=== PATIENT | male | born 1985 | race African-American/Black ===

== ENCOUNTER 2016-07-30 20:52 | Emergency (ER) | payer MEDICAID ==
[~2016-07-30] VITALS: Ht 165.1 cm; Wt 70.0 kg
[2016-07-30 20:53] VITALS: BP 144/79; PULSE 86; RESP 16; TEMP 98; O2SAT 98
[2016-07-30] MEDS ORDERED: CEPH-460 PO (22:00)
[2016-07-30] MEDS ORDERED: BACT800T5 PO (22:00)
[2016-07-30] MEDS ORDERED: SULFAMETHOXAZOLE-TRIMETHOPRIM DS 800-160 MG TAB PO ONE (22:00)
[2016-07-30] MEDS ORDERED: CEPHALEXIN MONOHYDRATE 500 MG CAP PO ONE (22:00)
--- NOTE | 2016-07-30 22:06 | PD ---
HPI Chief Complaint: Lump, Cyst, Hernia Time Seen by Provider: 21:55 Travel History International Travel<30 days: No Contact w/Intl Traveler<30days: No Traveled to known affect area: No History of Present Illness HPI This is a 30-year-old male who denies any significant past medical history. He presents for evaluation of a right groin area of tenderness. Symptoms started 4 days ago. Symptoms have persisted which prompted evaluation. He describes it as an aching pain which is reproduced with palpation of the right inguinal region. He does note that he shaves the pubic region on a regular basis. Denies any testicular or scrotal pain, nausea or vomiting, abdominal pain, fevers or chills, drainage, urethral discharge, dysuria. He has no other complaints at this time. PFSH Past Medical History Diminished Hearing: No Social History Alcohol Use: Yes (2X WK) Tobacco Use: Yes (2X WK WHEN DRINKING) Substance Use: No Allergies-Medications (Allergen,Severity, Reaction): Coded Allergies: Lortab (Verified Allergy, Intermediate, Rash, 07/30/16) Reported Meds & Prescriptions Reported Meds & Active Scripts Active Keflex (Cephalexin) 500 Mg Cap 500 Mg PO Q6H 10 Days Bactrim DS (Sulfamethoxazole-Trimethoprim) 800-160 Mg Tab 1 Tab PO BID Review of Systems Except as stated in HPI: all other systems reviewed are Neg Physical Exam Narrative GENERAL: Well-developed well-nourished male in no acute distress SKIN: Warm and dry. Examination of the inguinal region reveals a 2 cm area of skin induration and erythema in the right groin. There is a central area of papular excoriation consistent with folliculitis. There is no fluctuance or drainage. There is no palpable lymphadenopathy. : Skin as noted above. There is no tenderness to palpation to the scrotum or the testicles. There is no palpable inguinal hernia. CARDIOVASCULAR: Regular rate and rhythm. No murmur appreciated. RESPIRATORY: No accessory muscle use. Clear to auscultation. Breath sounds equal bilaterally. GASTROINTESTINAL: Abdomen soft, non-tender, nondistended. Data Data Last Documented VS Vital Signs Date Time Temp Pulse Resp B/P Pulse Ox O2 Delivery O2 Flow Rate FiO2 07/30/16 20:53 98.0 86 16 144/79 98 Room Air Orders Sulfamet-Trimeth Ds 800-160 Mg (Bactrim (07/30/16 22:00) Cephalexin (Keflex) (07/30/16 22:00) [facility] Medical Decision Making Medical Screen Exam Complete: Yes Emergency Medical Condition: Yes Medical Record Reviewed: Yes Differential Diagnosis Cellulitis, abscess, carbuncle, lymphadenitis, inguinal hernia Narrative Course 30-year-old male presents with 4 days of skin irritation and tenderness in the right inguinal region. Examination reveals a 2 cm area of induration, erythema , central folliculitis and he appears to have cellulitis without any fluctuance or abscess formation. There is no palpable inguinal hernia or lymphadenitis. Plan is to treat the patient with oral antibiotics. Discussed signs and symptoms that would warrant return to the emergency room and he verbalizes understanding. He is stable for discharge. Diagnosis Primary Impression: Cellulitis of right groin Additional Impression: Folliculitis Additional Instructions: Take the antibiotics as prescribed. Warm compresses several times a day 10-15 minutes at a time. Return for evidence of worsening infection such as increasing redness, increasing swelling, fevers. Med/Other Pt SpecificInfo: Prescription(s) given Scripts Cephalexin (Keflex)500 Mg [id number] Mg PO Q6H 10 Days Ref 0 Prov:Luis Fung MD 07/30/16 Sulfamethoxazole-Trimethoprim (Bactrim DS)800-160 Mg Tab1 Tab PO BID #20 TAB Ref 0 Prov:Luis Fung MD 07/30/16 Disposition: 01 DISCHARGE HOME Condition: Stable Beni Day Jul 30, 2016 22:06
== END 2016-07-30 22:34 | disposition home or self-care (01) ==
LOC: NEPB 20:52
DX: L03.314 Cellulitis of groin (principal); L73.9 Follicular disorder, unspecified; Z72.0 Tobacco use
CPT/HCPCS: 99283

== ENCOUNTER 2016-11-10 08:40 | Emergency (ER) | payer MEDICAID ==
[~2016-11-10] VITALS: Ht 172.7 cm; Wt 74.0 kg
[~2016-11-10 08:40] MED LIST: BACT800T5 PO; CEPH-460 PO
[2016-11-10 08:41] VITALS: BP 135/87; PULSE 16; PULSE 86; RESP 15; TEMP 98.2; O2SAT 98
--- NOTE | 2016-11-10 09:20 | PD ---
HPI . possible STD Chief Complaint: Complaint Time Seen by Provider: 09:20 Travel History International Travel<30 days: No Contact w/Intl Traveler<30days: No Traveled to known affect area: No History of Present Illness HPI 31-year-old male with no past medical history here with complaints of possibly having STD. Patient says that he recently had unprotected sex and is now having dysuria for the past 3-4 days. He denies any penile discharge, but says the burning is very significant. He has no other complaints. He denies any fever or chills. He wants to have STD testing and would like to go ahead and opt for treatment prophylactically. PFSH Past Medical History Diminished Hearing: No Social History Alcohol Use: Yes (2X WK) Tobacco Use: Yes (2X WK WHEN DRINKING) Substance Use: No Allergies-Medications (Allergen,Severity, Reaction): Coded Allergies: No Known Allergies (Unverified , 11/10/16) Reported Meds & Prescriptions Reported Meds & Active Scripts Active Keflex (Cephalexin) 500 Mg Cap 500 Mg PO Q6H 10 Days Bactrim DS (Sulfamethoxazole-Trimethoprim) 800-160 Mg Tab 1 Tab PO BID Review of Systems General / Constitutional: No: Fever Eyes: No: Visual changes HENT: No: Headaches Cardiovascular: No: Chest Pain or Discomfort Respiratory: No: Shortness of Breath Gastrointestinal: No: Abdominal Pain Genitourinary: Positive: Dysuria Musculoskeletal: No: Pain Skin: No Rash Neurologic: No: Weakness Psychiatric: No: Depression Endocrine: No: Polydipsia Hematologic/Lymphatic: No: Easy Bruising Physical Exam Narrative GENERAL: AAO x 3, no acute distress, Well-nourished, well-developed patient. SKIN: Warm and dry. No visible rashes or bruising. HEAD: Normocephalic and atraumatic. EYES: No scleral icterus. No injection or drainage. ENT: No nasal drainage noted. Mucous membranes pink. Airway patent. NECK: Supple, trachea midline. No JVD. CARDIOVASCULAR: Regular rate and rhythm without murmurs, gallops, or rubs. RESPIRATORY: Breath sounds equal bilaterally. No accessory muscle use. No rhonchi or rales. GASTROINTESTINAL: Abdomen soft, non-tender, nondistended. GENITAL: Declined genital examination EXTREMITIES: No cyanosis or edema. BACK: Nontender without obvious deformity. No CVA tenderness. PSYCH: AAO x 3, normal affect. Data Data Last Documented VS Vital Signs Date Time Temp Pulse Resp B/P Pulse Ox O2 Delivery O2 Flow Rate FiO2 11/10/16 08:41 98.2 86 15 135/87 98 Orders Urinalysis - C+S If Indicated (11/10/16 09:20) Gc And Chlamydia Pcr (11/10/16 09:20) Azithromycin (Zithromax) (11/10/16 09:30) Ceftriaxone Inj (Rocephin Inj) (11/10/16 09:30) Sodium Chloride 0.9% Flush (Ns Flush) (11/10/16 09:30) Lidocaine 1% Inj (50 Ml) (Xylocaine 1% I (11/10/16 09:30) Labs Laboratory Tests Test 11/10/16 09:42 Urine Color YELLOW Urine Turbidity CLEAR Urine pH 6.5 Urine Specific [place] 1.017 Urine Protein NEG mg/dL Urine Glucose (UA) NEG mg/dL Urine Ketones NEG mg/dL Urine Occult Blood NEG Urine Nitrite NEG Urine Bilirubin NEG Urine Urobilinogen LESS THAN 2.0 MG/DL Urine Leukocyte Esterase NEG Urine RBC LESS THAN 1 /hpf Urine WBC LESS THAN 1 /hpf Microscopic Urinalysis Comment CULT NOT INDICATED MDM Medical Decision Making Medical Screen Exam Complete: Yes Emergency Medical Condition: Yes Medical Record Reviewed: Yes Differential Diagnosis Urethritis, UTI, less likely BPH Narrative Course 31-year-old male with no past medical history here with complaints of possibly having STD. Patient says that he recently had unprotected sex and is now having dysuria for the past 3-4 days. He denies any penile discharge, but says the burning is very significant. He has no other complaints. He denies any fever or chills. He wants to have STD testing and would like to go ahead and opt for treatment prophylactically. Patient seen and examined. He has no abn findings on examination. He declines any examination of his genitals. I recommend urine sample and GC testing. I've advised him that we can go ahead and prophylactically treat. He has accepted that plan and recommendations. Rocephin and Azithromycin in the ED. I advised him to go to the [facility] for further testing including syphilis, herpes and HIV. Patient verbalized understanding of instructions, questions were answered, and thanked me for their care. I advised them if their condition worsens, please return to the nearest emergency room for further care. Diagnosis Primary Impression: Dysuria Patient Instructions: General Instructions Additional Instructions: Please go to [facility] for further testing. Disposition: 01 DISCHARGE HOME Condition: Stable Torrie Fitzpatrick Nov 10, 2016 09:20
[2016-11-10] MEDS ORDERED: LIDOCAINE HCL 1% 50 ML VIAL XX ONE (09:30)
[2016-11-10] MEDS ORDERED: AZITHROMYCIN 250 MG TAB PO ONE (09:30)
[2016-11-10] MEDS ORDERED: SODIUM CHLORIDE 0.9% FLUSH 10 ML FLUSH IVF PRN (09:30)
[2016-11-10] MEDS ORDERED: cefTRIAXone 250 MG VIAL IM ONE (09:30)
[2016-11-10 10:12] LABS: BLOOD, URINE NEG (NEG); GLUCOSE,URINE NEG (NEG); KETONE, URINE NEG (NEG); NITRITE,URINE NEG (NEG); PH, URINE 6.5 (5.0-8.5); URINE COLOR YELLOW (YELLW/STRAW)
[2016-11-10 10:21] LABS: COMMENT (UR) CULT NOT INDICATED; CULTURE IF INDICATED CULT NOT INDICATED
[2016-11-10 12:47] LABS: CHLAMYDIA PCR NOT DETECTED (NOT DETECT); NEISSERIA PCR NOT DETECTED (NOT DETECT)
== END 2016-11-10 10:34 | disposition home or self-care (01) ==
LOC: NEPK 08:40
DX: R30.0 Dysuria (principal)
CPT/HCPCS: 81001; 87491; 87591; 96372; 99283; J0696

== ENCOUNTER 2017-02-01 15:22 | Emergency (ER) | payer MEDICAID ==
[~2017-02-01] VITALS: Ht 167.6 cm; Wt 75.0 kg
[2017-02-01 15:24] VITALS: BP 140/70; PULSE 64; RESP 20; TEMP 98.3; O2SAT 99
--- NOTE | 2017-02-01 16:34 | RADRPT ---
EXAM DATE/TIME: 02/01/2017 16:23 [place] COMPARISON: No previous studies available for comparison. INDICATIONS : Chest pain on left side and shortness of breath. MEDICAL HISTORY : None. SURGICAL HISTORY : None. ENCOUNTER: Initial ACUITY: 1 day PAIN SCORE: 8/10 LOCATION: Bilateral chest FINDINGS: The lungs are clear without infiltrate, nodule, or mass. There is no appreciable pleural effusion fo r technique. Heart and mediastinum are unremarkable. CONCLUSION: No acute cardiopulmonary disease. Sydney Harding MD on February 01, 2017 at 16:31 Board Certified Radiologist. This report was verified electronically.
[2017-02-01 17:08] VITALS: BP 119/66; PULSE 75; RESP 18; O2SAT 99
[2017-02-01] MEDS ORDERED: MORPHINE SULFATE 4 MG/ML INJ IV PUSH ONE (17:30)
[2017-02-01] MEDS ORDERED: ASPIRIN 325 MG TAB PO ONE (17:30)
[2017-02-01] MEDS ORDERED: SODIUM CHLORIDE 0.9% FLUSH 10 ML FLUSH IVF PRN (17:30)
[2017-02-01] MEDS: MORPHINE SULFATE 8 MG/ML INJ IV PUSH ONE ×2 (17:41→17:42)
[2017-02-01 17:49] LABS: AUTOMATED NEUTROPHIL # 3.6 TH/MM3 (1.8-7.7); BASOPHIL % 0.4 % (0.0-2.0); EOSINOPHIL # 0.1 TH/MM3 (0-0.4); EOSINOPHIL % 1.1 % (0.0-4.0); HEMO FLAGS DIFF FINAL; LYMPH % 30.4 % (9.0-44.0); LYMPHOCYTE # 1.9 TH/MM3 (1.0-4.8); MEAN CELL VOLUME 88.1 FL (80.0-100.0); MEAN CORPUSCULAR HEMOGLOBIN 30.1 PG (27.0-34.0); MEAN CORPUSCULAR HGB CONC 34.2 % (32.0-36.0); MONO % 10.9 % (0.0-8.0); NEUT % 57.2 % (16.0-70.0); PLATELET COUNT 288 TH/MM3 (150-450); RED BLOOD COUNT 4.65 MIL/MM3 (4.50-5.90); RED CELL DISTRIBUTION WIDTH 14.3 % (11.6-17.2); WHITE BLOOD COUNT 6.3 TH/MM3 (4.0-11.0)
[2017-02-01 18:01] LABS: ANION GAP 5 MEQ/L (5-15); BICARBONATE 27.9 MEQ/L (21.0-32.0); BLOOD UREA NITROGEN 10 MG/DL (7-18); CHLORIDE 106 MEQ/L (98-107); GLOMERULAR FILTRATION RATE 82 ML/MIN (>89); MAGNESIUM 2.2 MG/DL (1.5-2.5); POTASSIUM 4.2 MEQ/L (3.5-5.1); SODIUM (NA) 139 MEQ/L (136-145)
[2017-02-01 18:03] LABS: APTT (PATIENT) 28.5 SEC (24.3-30.1); PROTHROMBIN TIME - PATIENT 10.7 SEC (9.8-11.6)
[2017-02-01 18:04] LABS: CREATINE KINASE 298 U/L (39-308)
[2017-02-01] MEDS ORDERED: IBUP800T23 PO (18:04)
--- NOTE | 2017-02-01 18:04 | PD ---
HPI . Chest pain Chief Complaint: Chest Pain Time Seen by Provider: 16:59 Travel History International Travel<30 days: No Contact w/Intl Traveler<30days: No Traveled to known affect area: No History of Present Illness HPI This patient presents with chief complaint of chest pain. Onset was 3-4 days ago. He states that the pain comes and goes. He reports no modifying factors. He describes sharp left-sided chest pain which he rates 7/10. No previous similar history. No cough or fever. He admits to tobacco use but denies drug use. PFSH Past Medical History Medical History: Denies Significant Hx Diminished Hearing: No Past Surgical History Surgical History: No Previous Surgery Social History Alcohol Use: Yes (2X WK) Tobacco Use: Yes (2X WK WHEN DRINKING) Substance Use: No Allergies-Medications (Allergen,Severity, Reaction): Coded Allergies: No Known Allergies (Unverified , 11/10/16) Reported Meds & Prescriptions Reported Meds & Active Scripts Active Ibuprofen 800 Mg Tab 800 Mg PO Q8H PRN Keflex (Cephalexin) 500 Mg Cap 500 Mg PO Q6H 10 Days Bactrim DS (Sulfamethoxazole-Trimethoprim) 800-160 Mg Tab 1 Tab PO BID Review of Systems Except as stated in HPI: all other systems reviewed are Neg General / Constitutional: No: Fever, Chills Cardiovascular: Positive: Chest Pain or Discomfort Respiratory: Positive: Shortness of Breath, No: Cough Gastrointestinal: No: Nausea, Vomiting, Diarrhea Physical Exam Narrative GENERAL: This is a very comfortable appearing patient who does not appear to be in any distress at all. SKIN: Warm and dry. HEAD: Atraumatic. Normocephalic. EYES: Pupils equal and round. Extraocular movements are intact. ENT: No nasal bleeding or discharge. Mucous membranes pink and moist. NECK: Trachea midline. Neck is supple. CARDIOVASCULAR: Regular rate and rhythm. Heart sounds are normal. RESPIRATORY: No accessory muscle use. Lungs are clear with full air movement throughout. Chest wall is nontender. GASTROINTESTINAL: Abdomen soft, non-tender, nondistended. MUSCULOSKELETAL: No obvious deformities. No edema. NEUROLOGICAL: Awake and alert. No obvious cranial nerve deficits. Motor grossly within normal limits. Normal speech. PSYCHIATRIC: Appropriate mood and affect; insight and judgment normal. Data Data Last Documented VS Vital Signs Date Time Temp Pulse Resp B/P Pulse Ox O2 Delivery O2 Flow Rate FiO2 02/01/17 18:05 98 Room Air 02/01/17 17:08 75 18 119/66 02/01/17 15:24 98.3 Orders Electrocardiogram (02/01/17 ) Chest, Pa & Lat (02/01/17 ) Basic Metabolic Panel (Bmp) (02/01/17 17:18) Ckmb (Isoenzyme) Profile (02/01/17 17:18) Complete Blood Count With Diff (02/01/17 17:18) D-Dimer (02/01/17 17:18) Magnesium (Mg) (02/01/17 17:18) Prothrombin Time / Inr (Pt) (02/01/17 17:18) Act Partial Throm Time (Ptt) (02/01/17 17:18) Troponin I (02/01/17 17:18) Ecg Monitoring (02/01/17 17:18) Iv Access Insert/Monitor (02/01/17 17:18) Oximetry (02/01/17 17:18) Aspirin (Aspirin) (02/01/17 17:30) Morphine Inj (Morphine Inj) (02/01/17 17:30) Sodium Chloride 0.9% Flush (Ns Flush) (02/01/17 17:30) Morphine Inj (Morphine Inj) (02/01/17 17:45) CKMB (02/01/17 17:20) CKMB% (02/01/17 17:20) Labs Laboratory Tests Test 02/01/17 17:20 White Blood Count 6.3 TH/MM3 Red Blood Count 4.65 MIL/MM3 Hemoglobin 14.0 GM/DL Hematocrit 41.0 % Mean Corpuscular Volume 88.1 FL Mean Corpuscular Hemoglobin 30.1 PG Mean Corpuscular Hemoglobin 34.2 % Concent Red Cell Distribution Width 14.3 % Platelet Count 288 TH/MM3 Mean Platelet Volume 7.9 FL Neutrophils (%) (Auto) 57.2 % Lymphocytes (%) (Auto) 30.4 % Monocytes (%) (Auto) 10.9 % Eosinophils (%) (Auto) 1.1 % Basophils (%) (Auto) 0.4 % Neutrophils # (Auto) 3.6 TH/MM3 Lymphocytes # (Auto) 1.9 TH/MM3 Monocytes # (Auto) 0.7 TH/MM3 Eosinophils # (Auto) 0.1 TH/MM3 Basophils # (Auto) 0.0 TH/MM3 CBC Comment DIFF FINAL Differential Comment Prothrombin Time 10.7 SEC Prothromb Time International 1.0 RATIO Ratio Activated Partial 28.5 SEC Thromboplast Time D-Dimer Quantitative (PE/DVT) 0.23 MG/L FEU Sodium Level 139 MEQ/L Potassium Level 4.2 MEQ/L Chloride Level 106 MEQ/L Carbon Dioxide Level 27.9 MEQ/L Anion Gap 5 MEQ/L Blood Urea Nitrogen 10 MG/DL Creatinine 1.23 MG/DL Estimat Glomerular Filtration 82 ML/MIN Rate Random Glucose 81 MG/DL Calcium Level 8.9 MG/DL Magnesium Level 2.2 MG/DL Total Creatine Kinase 298 U/L Creatine Kinase MB LESS THAN 0.5 NG/ML Troponin I LESS THAN 0.02 NG/ML MDM Medical Decision Making Medical Screen Exam Complete: Yes Emergency Medical Condition: Yes Interpretation(s) EKG shows a normal sinus rhythm with no ST segment elevation or depression. He does have increased voltage in the anterior leads. Differential Diagnosis Differential diagnosis of chest pain includes but is not limited to musculoskeletal pain, pulmonary embolism, acute coronary syndrome, pneumonia, pleurisy Narrative Course This patient presents for the evaluation of chest pain. He looks extremely comfortable. His EKG has no ischemic changes. Last Impressions Chest X-Ray 02/01/17 0000 Signed Impressions: Service Date/Time: Wednesday, February 01, 2017 16:23 - CONCLUSION: No acute cardiopulmonary disease. Sydney Harding MD The chest x-ray was independently viewed by me. CBC Diagram 02/01/17 17:20 BMP Diagram 02/01/17 17:20 Cardiac enzymes are negative. The history, exam, diagnostic testing, and current condition do not suggest any significant pathology to warrant further testing, continued ED treatment, admission, or surgical evaluation at this point. The patient's condition is stable and appropriate for discharge. Diagnosis Primary Impression: Chest pain Qualified Code: R07.9 - Chest pain, unspecified type Patient Instructions: Chest Pain (DC), General Instructions Med/Other Pt SpecificInfo: Prescription(s) given Scripts Ibuprofen 800 Mg [id number] Mg PO Q8H PRN (Pain/Inflammation) #60 TAB Ref 0 Prov:Maria Teresa Richmond MD 02/01/17 Disposition: 01 DISCHARGE HOME Condition: Stable Maria Teresa Richmond MD Feb 01, 2017 18:04
[2017-02-01 18:05] VITALS: O2SAT 98
[2017-02-01 18:17] LABS: CKMB LESS THAN 0.5 NG/ML (0.5-3.6)
[2017-02-01 18:36] VITALS: BP 122/72
--- NOTE | 2017-02-02 19:45 | EKG ---
Date Performed: 02/01/2017 Time Performed: 15:50:35 PTAGE: 31 years EKG: SINUS BRADYCARDIA BORDERLINE ECG PREVIOUS TRACING : 03/18/2015 05.06 Since previous tracing, no significant change noted DOCTOR: Marylou Acosta Interpretating Date/Time 02/02/2017 19:43:22
== END 2017-02-01 18:45 | disposition home or self-care (01) ==
LOC: NEPD 15:22
DX: R07.9 Chest pain, unspecified (principal); R06.02 Shortness of breath; R00.1 Bradycardia, unspecified; Z79.899 Other long term (current) drug therapy; Z72.0 Tobacco use
CPT/HCPCS: 71020; 80048; 82550; 82552; 83735; 84484; 85025; 85379; 85610; 85730; 93005; J2270

== ENCOUNTER 2017-04-14 21:54 | Emergency (ER) | payer MEDICAID ==
[~2017-04-14 21:54] MED LIST changes: +IBUP800T23 PO
[2017-04-14 21:56] VITALS: BP 140/85; PULSE 86; RESP 16; TEMP 98.6; O2SAT 97
[2017-04-14] MEDS ORDERED: DOXY100C PO (23:14)
== END 2017-04-14 22:30 | disposition left against medical advice (07) ==
LOC: NED 21:54
DX: Z53.21 Procedure and treatment not carried out due to patient leaving prior to being seen by health care provider (principal)
CPT/HCPCS: 99281

== ENCOUNTER 2017-04-14 22:25 | Emergency (ER) | payer MEDICAID ==
[~2017-04-14] VITALS: Ht 167.6 cm; Wt 71.7 kg
[2017-04-14 22:38] VITALS: BP 133/71; PULSE 87; RESP 16; TEMP 97.9; O2SAT 98
[2017-04-14] MEDS ORDERED: DOXY100C PO (23:14)
--- NOTE | 2017-04-14 23:14 | PD ---
HPI Chief Complaint: Complaint Time Seen by Provider: 23:05 Travel History International Travel<30 days: No Contact w/Intl Traveler<30days: No Traveled to known affect area: No History of Present Illness HPI 31-year-old male complains of dysuria. Patient states that the condom broke during sex recently. Patient denies any fever. Patient denies any back pain. PFSH Past Medical History Diminished Hearing: No Social History Alcohol Use: Yes (2X WK) Tobacco Use: Yes (2X WK WHEN DRINKING) Substance Use: No Allergies-Medications (Allergen,Severity, Reaction): Coded Allergies: No Known Allergies (Unverified , 11/10/16) Reported Meds & Prescriptions Reported Meds & Active Scripts Active Ibuprofen 800 Mg Tab 800 Mg PO Q8H PRN Keflex (Cephalexin) 500 Mg Cap 500 Mg PO Q6H 10 Days Bactrim DS (Sulfamethoxazole-Trimethoprim) 800-160 Mg Tab 1 Tab PO BID Review of Systems General / Constitutional: No: Fever Eyes: No: Visual changes HENT: No: Headaches Cardiovascular: No: Chest Pain or Discomfort Respiratory: No: Shortness of Breath Gastrointestinal: No: Abdominal Pain Genitourinary: Positive: Dysuria Musculoskeletal: No: Pain Skin: No Rash Neurologic: No: Weakness Psychiatric: No: Depression Endocrine: No: Polydipsia Hematologic/Lymphatic: No: Easy Bruising Physical Exam Narrative GENERAL: Well-nourished, well-developed patient. SKIN: Focused skin assessment warm/dry. HEAD: Normocephalic. EYES: No scleral icterus. No injection or drainage. NECK: Supple, trachea midline. No JVD or lymphadenopathy. CARDIOVASCULAR: Regular rate and rhythm without murmurs, gallops, or rubs. RESPIRATORY: Breath sounds equal bilaterally. No accessory muscle use. GASTROINTESTINAL: Abdomen soft, non-tender, nondistended. MUSCULOSKELETAL: No cyanosis, or edema. BACK: Nontender without obvious deformity. No CVA tenderness. exam: Patient has yellow greenish discharge or urethral. No penile lesions noted. No tenderness on palpation of testicles. Data Data Last Documented VS Vital Signs Date Time Temp Pulse Resp B/P (MAP) Pulse Ox O2 Delivery O2 Flow Rate FiO2 04/14/17 22:38 97.9 87 16 133/71 (91) 98 Orders Orders Azithromycin Powd Pack (Zithromax Powd P (04/14/17 23:15) Ceftriaxone Inj (Rocephin Inj) (04/14/17 23:15) Sodium Chloride 0.9% Flush (Ns Flush) (04/14/17 23:15) Lidocaine 1% Inj (50 Ml) (Xylocaine 1% I (04/14/17 23:15) MDM Medical Decision Making Medical Screen Exam Complete: Yes Emergency Medical Condition: Yes Differential Diagnosis Differential diagnosis including gonorrhea urethritis, chlamydia urethritis. Narrative Course 31-year-old male with urethral discharge and dysuria. Rocephin 350 mg IM. Zithromax 1 g by mouth. Diagnosis Primary Impression: Urethritis Patient Instructions: General Instructions Additional Instructions: Doxycycline as directed. Follow-up with personal physician. Partner needs to be treated also. Med/Other Pt SpecificInfo: Prescription(s) given Scripts Doxycycline Hyclate (Doxycycline Hyclate) 100 Mg Cap 100 MG PO BID for Infection, #14 CAP 0 Refills Prov: Lencho Hoskins MD 04/14/17 Disposition: 01 DISCHARGE HOME Condition: Stable Lencho Hoskins MD Apr 14, 2017 23:14
[2017-04-14] MEDS ORDERED: LIDOCAINE HCL 1% 50 ML VIAL XX ONE (23:15)
[2017-04-14] MEDS ORDERED: AZITHROMYCIN PWD FOR SUSP 1 GM PACKET PO ONE (23:15)
[2017-04-14] MEDS ORDERED: SODIUM CHLORIDE 0.9% FLUSH 10 ML FLUSH IVF PRN (23:15)
[2017-04-14] MEDS ORDERED: cefTRIAXone 250 MG VIAL IM ONE (23:15)
[2017-04-15 00:11] VITALS: BP 132/69
== END 2017-04-15 00:13 | disposition home or self-care (01) ==
LOC: PHED 22:25
DX: N34.2 Other urethritis (principal); R30.0 Dysuria; Z72.0 Tobacco use
CPT/HCPCS: 96372; 99284; J0696